=== PATIENT | female | born 1955 | race African-American/Black ===

== ENCOUNTER 2019-09-08 08:00 | Outpatient (RCR) | payer OTHER, SELFPAY ==
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
--- NOTE | 2019-08-13 08:52 | PTOPEVAL ---
PHYSICAL THERAPY PLAN OF CARE UPDATE AND PROGRESS REPORT Thank you for referring this patient to [facility]. So will continue physical therapy 2x/week for 3 weeks. Please review, sign, date and return this plan of care [facility]. I agree with and certify that the following plan of care is medically necessary. Referring Physician Date Re-evaluation Outpatient Past Medical History Past Medical History Past Medical History Status Patient Denies Significant Past Medical History Evaluation Information Problem Diagnosis left ankle pain, right trochanteric bursitis Onset 1 year ago Subjective Information So has participated 8 Query Text:As Reported By Patient/ visits of physical therapy for Family left ankle pain and right hip pain diagnosed as trochanteric bursitis. She reports today that the ankle only hurts momentarily when she steps off (on an uneven rock, etc). Also reports that the right hip pain seems to be less to some degree, but continues to be limiting her sleep and is painful if she sits for too long. Pain Scale Pain Scale Used Numeric (1 - 10) Self Report Pain Assessment Right Hip(s) Reported Pain Level 2 Interventions Used By Clinicians Exercise,Heat,Manual Therapy Techniques Left Ankle(s) Reported Pain Level 2 Pain Description Sharp Pain Frequency Intermittent Other Pain Description medial ankle Interventions Used By Clinicians Exercise Additional Pain Comments reports random pain sharp pain medial ankle Pain Score Pain Score 2,2: Self Report Hip Range of Motion Left Hip Medial Rotation - Passive 45 Hip Lateral Rotation - Passive 60 Right Hip Flexion Range of Motion - Passive 135 Hip Abduction Range of Motion - Active 40 Hip Medial Rotation - Passive 60 Hip Lateral Rotation - Passive 45 Hip Range of Motion Limitations Muscle Length Restriction Ankle/Foot Range of Motion Left Ankle Dorsiflextion With Knee Extension 10 Range of Motion - Active Ankle Plantarflexion Range of Motion - 55 Active Query Text: Hip Strength Left Hip Flexion Strength 5 Normal Hip Extension Strength 4+ Good + Hip Abduction Strength 5 Normal Right Hip Flexion Strength 5 Normal Hip Ext
--- NOTE | 2019-08-20 14:07 | PCPTNOTE ---
Patient called & cancelled scheduled appointment for this date and Friday 08/25 due to being out of town
--- NOTE | 2019-09-08 08:43 | PTOPEVAL ---
PHYSICAL THERAPY DISCHARGE REPORT Thank you for referring this patient to [facility]. So will be discharged from PT at this time. She is to follow-up with physician regarding persistent left foot/ankle symptoms despite normal strength, ROM, and function. Please review, sign, date and return this plan of care TOREY. I agree with and certify that the following plan of care is medically necessary. Referring Physician Date Discharge Outpatient Past Medical History Past Medical History Status Patient Denies Significant Past Medical History Evaluation Information Problem Diagnosis left ankle pain, right trochanteric bursitis Onset 1 year ago Subjective Information So has participated 8 weeks Query Text:As Reported By Patient/ of physical therapy for left Family ankle pain and right hip pain diagnosed as trochanteric bursitis. She reports today that the ankle has not changed in that she continues to experience periodic symptoms without known etiology - she is working on seeing if her shoes make a difference. Reports that her hip is improved and thinks that rolling the glutes and ITB is very helpful. So would like to be able to run in a half marathon, but has not tried to run on the left ankle yet. Self Report Pain Assessment Right Hip(s) Reported Pain Level 1 Interventions Used By Clinicians Exercise,Heat,Manual Therapy Techniques Left Ankle(s) Reported Pain Level 1 Pain Frequency Intermittent Other Pain Description medial ankle Interventions Used By Clinicians Exercise Hip Range of Motion Right Hip Flexion Range of Motion - Passive 135 Hip Abduction Range of Motion - Active 40 Hip Medial Rotation - Passive 50 Hip Lateral Rotation - Passive 50 Hip Range of Motion Limitations Muscle Length Restriction Ankle/Foot Range of Motion Left Ankle Dorsiflextion With Knee Extension 10 Ankle Plantarflexion Range of Motion - 55 Hip Strength Left Hip Flexion Strength 5 Normal Hip Extension Strength 5 Normal Hip Abduction Strength 5 Normal Right Hip Flexion Strength 5 Normal Hip Extension Strength 5 Normal Hip Abduction Strength 5 Normal Knee Strength Bilateral
== END 2019-09-08 09:00 | disposition home or self-care (01) ==
LOC: ANHPT 08:00
DX: M25.572 Pain in left ankle and joints of left foot (principal); M70.61 Trochanteric bursitis, right hip
CPT/HCPCS: 97110; 97140; 97161

== ENCOUNTER 2019-12-28 17:40 | Observation (INO) | payer OTHER, SELFPAY ==
[2019-12-28] VITALS (12 sets, daily range): BP systolic 119–136; BP diastolic 68–85; PULSE 50–68; RESP 11–20; TEMP 36.2; O2SAT 97–100
--- NOTE | ~2019-12-28 | MR_ITS ---
EXAMINATION: MR brain/brain stem wo con DATE: 12/29/2019 13:26 INDICATION: Dizziness. TECHNIQUE: Magnetic resonance imaging (MRI) of the brain and brainstem was performed without intraven ous contrast. Sequences included sagittal and axial T1-weighted FSE, axial diffusion-weighted FS EPI, axial T2*-weighted GRE, axial T2-weighted FLAIR Propeller, and axial T2-weighted Propeller. Apparent diffusion coefficient (ADC) maps were created. COMPARISON: Head CT 12/28/2019 FINDINGS: There are scattered areas of nonspecific increased T2-weighted signal intensity in the cere bral white matter, which is within normal limits for the patient's age. There is no intracranial hemo rrhage, acute infarction, or abnormal intracranial mass lesion. The ventricles are normal in size. Th e paranasal sinuses are clear. The orbits are normal. The mastoid air cells are normal. IMPRESSION: 1. Normal brain. Reviewed, dictated and finalized at location A. IMPRESSION: 1. Normal brain.
--- NOTE | ~2019-12-28 | CT_ITS ---
EXAMINATION: CT brain wo con DATE: 12/28/2019 22:53 INDICATION: Vertigo. TECHNIQUE: Computed tomography (CT) of the head was performed without intravenous contrast. The mA wa s adjusted according to patient size. Iterative reconstruction technique was employed. The dose-lengt h product was 605.33 mGy-cm. COMPARISON: Head CT 07/06/2008 FINDINGS: There are scattered areas of low attenuation in the cerebral white matter, which is within normal limits for the patient's age. There is no intracranial hemorrhage, acute infarction, or abnorm al intracranial mass lesion. The ventricles are normal in size. There is a small osteoma in right eth moid sinus. The mastoid air cells are normal. The orbits are normal. IMPRESSION: 1. Normal aging brain. Reviewed, dictated and finalized at location A. IMPRESSION: 1. Normal aging brain.
--- NOTE | ~2019-12-28 | XR_ITS ---
EXAMINATION: XR chest 1V DATE: 12/28/2019 22:49 INDICATION: Dizziness. Diaphoresis. TECHNIQUE: A single frontal view of the chest was obtained. COMPARISON: Chest 2 views 09/13/2015 FINDINGS: The chest demonstrates clear lungs without pneumonia, pleural effusion, or pneumothorax. Th e heart size is normal. IMPRESSION: 1. No acute cardiopulmonary disease. Reviewed, dictated and finalized at location A.
--- NOTE | 2019-12-28 18:24 | ECG_ITS ---
Measurements Intervals [place] Rate: 51 P: 46 WI: 146 QRS: -15 QRSD: 90 T: 38 QT: 491 QTc: 453 Interpretive Statements SINUS BRADYCARDIA RSR' IN V1 OR V2, CONSIDER RIGHT VENTRICULAR HYPERTROPHY OR RIGHT VCD VOLTAGE CRITERIA FOR LVH MINIMAL Q WAVES- HIGH LATERAL LEADS BORDERLINE ECG Electronically Signed On 12-29-2019 6:56:58 CDT by Romulo Michelle D.O.
[2019-12-28 18:45] LABS: Basophils Percent Auto 0.2 % (0.2-1.2); Eosinophils Absolute Auto 0.1 K/mm3 (0-0.3); Eosinophils Percent Auto 1.4 % (0-4.4); Hematocrit 38.2 % (37.0-47.0); Hemoglobin 12.3 g/dL (12.0-15.0); Immature Granulocyte Absolute 0.07 K/mm3 (0.00-0.031); Immature Granulocyte Percent A 1.2 % (0-0.5); Lymphocytes Absolute Auto 1.51 K/mm3 (0.9-3.2); Lymphocytes Percent Auto 26.9 % (18.3-44.2); Mean Corpuscular HGB Conc 32.2 g/dl (32-36); Mean Corpuscular Hemoglobin 26.7 pg (26-34); Monocytes Absolute Auto 0.3 K/mm3 (0.1-0.6); Monocytes Percent Auto 5.9 % (2.6-8.5); Neutrophils Absolute Auto 3.6 K/mm3 (1.3-6.7); Neutrophils Percent Auto 64.4 % (45.5-73.1); Platelet Count Result 213 k/mm3 (150-375); Red Cell Distribution Width 13.8 % (11.5-14.5); White Blood Count 5.6 K/mm3 (4.5-10.0)
[2019-12-28 18:57] LABS: Alanine Aminotransferase 14 U/L (4-35); Albumin Level 4.2 g/dL (3.5-5.1); Alkaline Phosphatase 72 U/L (38-126); Aspartate Amino Transferase 29 U/L (14-36); Bilirubin,Total 0.4 mg/dL (0.2-1.3); Blood Urea Nitrogen 10 mg/dL (7-17); Calcium 9.6 mg/dL (8.4-10.2); Carbon Dioxide 25 mmol/L (22-30); Chloride 106 mmol/L (98-107); Estimated CRCL calculation 66 ml/min; Estimated Glomerular Filt Rate > 60; Glucose 147 mg/dL (65-105); Potassium 3.5 mmol/L (3.4-5.0); Sodium 139 mmol/L (137-145)
--- NOTE | 2019-12-28 19:53 | ED.DIZZY ---
HPI - Dizziness General Chief Complaint: Dizziness Stated Complaint: dizzy Time Seen by Provider: 12/28/19 19:04 History of Present Illness HPI Narrative: Dizziness since yesterday. Initially mild to moderate. Today became more severe and associated with nausea and difficulty walking. Made slightly better by laying still with her eyes closed. Made worse by any movement. Feels like spinning and light headedness. She has had some sinus pressure. Related Data Home Medications Medication Instructions Recorded Confirmed bimatoprost [Lumigan] 12/28/19 cyclosporine [Restasis] 12/28/19 dorzolamide 12/28/19 fexofenadine-pseudoephedrine tablet PO 12/28/19 [Deepika-D 12 Hour] levothyroxine [Euthyrox] 12/28/19 ospemifene [Osphena] mg 12/28/19 Allergies Allergy/AdvReac Type Severity Reaction Status Date / Time Penicillins Allergy Mild Hives Unverified 12/28/19 17:53 Review of Systems Review of Systems: All systems reviewed & are unremarkable except as noted in HPI and below Constitutional: Constitutional: Denies chills and Denies fever(s) Eyes: Eyes: Denies change in vision ENT: Reports dizziness Cardiovascular: Cardiovascular: Denies chest pain Respiratory: Respiratory: Denies dyspnea Gastrointestinal: Gastrointestinal: Reports nausea and Reports vomiting Genitourinary: Genitourinary: Denies dysuria Neurologic: Denies headache(s), Denies focal weakness and Denies numbness PMFSH Past Medical History Medical History (Updated 12/29/19 @ 03:04 by Lyle Hobbs MD) Hypothyroid Social History Social History (Updated 12/29/19 @ 03:05 by Lyle Hobbs MD) Smoking status: Never smoker Gender identity (if verbalized by the patient): Female Exam Const: General: healthy appearing, no acute distress and alert Nutritional Appearance: well nourished Orientation/consciousness: patient oriented x3 HENMT: Ears: TM abnormal wth effusion serous on the right Mouth: Yes lip normal and Yes moist mucous membranes Eyes: Pupils: Equal, round and reactive pupils present Other: Nystagmus Neck: Neck: no lymphadenopathy Resp: Effort & Inspection: normal respiratory effort Auscultation: clear to auscultation bilaterally Cardio: Rate: regular rate Rhythm: regular rhythm Neuro: General: patient oriented x3, moves all extremities, no focal motor deficits and CN's II-XI intact bilaterally Cranial nerves: Yes Nystagmus present horizontal Speech: normal speech Course Vital Signs Vital signs: Vital Signs Temperature 36.2 C L 12/28/19 17:58 Pulse Rate 54 L 12/28/19 17:58 Respiratory Rate 11 L 12/28/19 17:58 Blood Pressure 135/84 12/28/19 17:58 Pulse Oximetry 98 12/28/19 17:58 Temperature 37.2 C 12/29/19 02:22 Pulse Rate 59 L 12/29/19 02:22 Respiratory Rate 17 12/29/19 02:22 Blood Pressure 115/79 12/29/19 02:22 Pulse Oximetry 100 12/29/19 02:22 MDM - Dizziness MDM Narrative Medical decision making narrative: History and exam findings suggest peripheral source. Minimal improvmeent with treatment. Attempted transition to oral medications for discharge. She vomitined and became unsteady when she attempted to walk. I will admit for observation. Differential Diagnosis Differential diagnosis: Likely benign paroxysmal positional vertigo, vertebral basilar insufficiency, cerebrovascular accident and transient cerebral ischemia Medical Records Attestation: I reviewed the patient's medical records. Lab Data Attestation: I reviewed the patient's lab results. Result diagrams: 12/28/19 18:41 12/28/19 18:41 Labs: Lab Results 12/28/19 12/28/19 Range/Units 18:41 18:41 WBC 5.6 (4.5-10.0) K/mm3 RBC 4.60 (4.2-5.4) M/mm3 Hgb 12.3 (12.0-15.0) g/dL Hct 38.2 (37.0-47.0) % MCV 83.0 (80-100) fl MCH 26.7 (26-34) pg MCHC 32.2 (32-36) g/dl RDW 13.8 (11.5-14.5) % Plt Count 213 (150-375) k/mm3 MPV 10.0 (
[2019-12-28] MEDS: PSEUDOEPHEDRINE HCL 30 MG TABLET 60 MG PO (21:14)
[2019-12-28] MEDS: SODIUM CHLORIDE 0.9% IV 1,000 ML 999 ML IV CONT (21:14)
[2019-12-28] MEDS: MECLIZINE HCL 25 MG TABLET PO (22:23)
--- NOTE | 2019-12-28 22:32 | PC.NURSE ---
attempted to ambulate patient at erps request. patient stood at bedside and began to dramatically sway and wretch. put patient back into bed and lowered head of bed at her request. patient became angry with this rn because the head of bed went down to quickly. patient verbalizing multiple complaints that no one is doing anything' and about her length of stay
[2019-12-29] VITALS (9 sets, daily range): BP systolic 115–140; BP diastolic 70–89; PULSE 49–99; RESP 15–25; TEMP 36.5–37.2; O2SAT 98–100; BMI 27.1
[2019-12-29] MEDS: DIAZEPAM 5 MG TABLET PO (01:11)
--- NOTE | 2019-12-29 01:20 | PC.NURSE ---
PT VOMITED PO VALIUM AT THIS TIME. EDP ORDERED 5 MG OF VALIUM IV.
--- NOTE | 2019-12-29 02:42 | PC.NURSE ---
This patient, So Bailey, was admitted to Medical Room 255-. Patient/family oriented to hospital policies and general routines including ID bracelet, bed and alarms, visiting hours, pain management, procedures, bathroom and other care routines, personal items, smoking policy, room service/diet, and visiting hours. Valuables list has been completed. Information on how to activate the Rapid Response Team has been discussed. Patient/Family are encouraged to report perceived risks to care and to ask questions if they do not understand what they are told or what they should do.
[2019-12-29] MEDS: LACTATED RINGERS 1,000 ML 125 ML IV CONT (03:38)
--- NOTE | 2019-12-29 03:53 | PM.IMHP ---
H&P: HPI History of Present Illness Chief complaint: Vertigo Narrative: This is a 64 year old female with known hypothryoidism who presented to the hospital [facility] with a complaint of severe dizziness, nausea, and vomiting since Saturday. The patient describes that her symptoms are exacerbated with any head movement. She describes a sensation of everything spinning. She has been so dizzy that she can't walk. She denies any ear pain, hearing loss, or ringing. The patient denies any recent URI symptoms including fever, cough, sore throat, shortness of breath, or chest pain. She also denies any focal neurological symptoms such as numbness, tingling, focal weakness, double vision, blurry vision, swallowing difficulties or facial drooping. She has not suddenly stopped taking any of her medications recently. She denies ever having similar symptoms in the past. The patient was evaluated in the ER [facility] and treated with Valium and Meclizine. She could not ambulate and we have been asked to admit her for further treatment. Review of Systems Review of Systems: All systems reviewed & are unremarkable except as noted in HPI and below PMFSH Past Medical History Medical History Glaucoma Hypothyroid Family History Family History Father Hypertension Mother Hypertension Sibling Hypertension Social History Social History Smoking packs per day: 0.5 Smoking cigarettes per day: 10.0 Smoking status: Former smoker Tobacco type: cigarettes Second hand tobacco smoke exposure: No Alcohol intake: never Substance use: never Substance use type: does not use Gender identity (if verbalized by the patient): Female Spiritual care concerns: No Comments Past surgical history is unremarkable. Meds Home Medications and Allergies Home Medications Medication Instructions Recorded Confirmed Type bimatoprost [Lumigan] 1 drp OPHTHALMIC (EYE) BID 12/28/19 12/29/19 History cyclosporine [Restasis] 1 drp OPHTHALMIC (EYE) BID 12/28/19 12/29/19 History dorzolamide 1 drp OPHTHALMIC (EYE) BID 12/28/19 12/29/19 History fexofenadine-pseudoephedrine 60 tablet PO DAILY 12/28/19 12/29/19 History [Deepika-D 12 Hour] levothyroxine [Euthyrox] 75 mcg PO DAILY 12/28/19 12/29/19 History ospemifene [Osphena] 60 mg PO DAILY 12/28/19 12/29/19 History diazepam [Valium] 5 mg PO TID PRN #10 tablet 12/29/19 Rx ondansetron HCl [Zofran] 4 mg PO Q6H PRN #10 tablet 12/29/19 Rx Allergies Allergy/AdvReac Type Severity Reaction Status Date / Time Penicillins Allergy Mild Hives Verified 12/29/19 08:46 Vital Signs Vital Signs - 24 hr 12/28/19 17:58 12/28/19 18:17 12/28/19 18:30 Temperature 36.2 C L Pulse Rate 54 L 55 L 56 L Respiratory Rate 11 L 19 15 Blood Pressure 135/84 Pulse Oximetry 98 98 100 12/28/19 18:31 12/28/19 18:45 12/28/19 19:00 Temperature Pulse Rate 52 L 52 L 52 L Respiratory Rate 12 15 14 Blood Pressure 133/81 Pulse Oximetry 100 97 99 12/28/19 19:01 12/28/19 19:15 12/28/19 19:16 Temperature Pulse Rate 50 L 58 L 54 L Respiratory Rate 14 13 13 Blood Pressure 136/85 127/81 Pulse Oximetry 98 98 100 12/28/19 21:14 12/28/19 22:15 12/28/19 23:34 Temperature Pulse Rate 56 L 68 54 L Respiratory Rate 17 20 19 Blood Pressure 119/79 122/68 127/78 Pulse Oximetry 97 99 100 12/29/19 01:19 12/29/19 02:22 Temperature 37.2 C Pulse Rate 55 L 59 L Respiratory Rate 19 17 Blood Pressure 128/89 115/79 Pulse Oximetry 100 100 Exam Const: General: cooperative, alert, awake and in distress (Dizziness++ ) mild Nutritional Appearance: well nourished Orientation/consciousness: patient oriented x3 HENMT: Head: normal to inspection General nose exam: Normal external nose present Face and sinus: normal facial exam Mouth: Ye
[2019-12-29 04:07] LABS: Add Urine Microscopic? YES; Appearance Urine Clear (Clear); Bilirubin Urine Negative (Negative); Color Urine Yellow (Yellow); Glucose Urine UA Negative (Negative); Ketones Urine 1+ mg/dL (Negative); Leukocyte Esterase Ur 2+ LEU/UL (Negative); Mucus Urine Rare /lpf; Nitrate Urine Negative (Negative); Protein Urine Negative (Negative); RBC Urine 0-2 /hpf (0-2); Specific Grav Ur 1.013 (1.001-1.035); Squamous Epithelial Cell Urine Few /hpf (Few); Urobilinogen Urine Negative mg/dL (<2.0); WBC Urine 31-50 /hpf
[2019-12-29 04:08] LABS: Blood Urine Negative (Negative)
[2019-12-29 05:24] LABS: Eosinophils Percent Auto 0.2 % (0-4.4); Hematocrit 36.6 % (37.0-47.0); Hemoglobin 11.6 g/dL (12.0-15.0); Immature Granulocyte Absolute 0.02 K/mm3 (0.00-0.031); Immature Granulocyte Percent A 0.4 % (0-0.5); Lymphocytes Absolute Auto 1.12 K/mm3 (0.9-3.2); Lymphocytes Percent Auto 21.3 % (18.3-44.2); Mean Corpuscular HGB Conc 31.7 g/dl (32-36); Mean Corpuscular Hemoglobin 26.5 pg (26-34); Mean Corpuscular Volume 83.6 fl (80-100); Monocytes Absolute Auto 0.3 K/mm3 (0.1-0.6); Monocytes Percent Auto 6.3 % (2.6-8.5); Neutrophils Absolute Auto 3.8 K/mm3 (1.3-6.7); Neutrophils Percent Auto 71.8 % (45.5-73.1); Platelet Count Result 210 k/mm3 (150-375); Red Blood Count 4.38 M/mm3 (4.2-5.4); Red Cell Distribution Width 13.5 % (11.5-14.5); White Blood Count 5.3 K/mm3 (4.5-10.0)
[2019-12-29 05:35] LABS: Blood Urea Nitrogen 9 mg/dL (7-17); Calcium 9.2 mg/dL (8.4-10.2); Carbon Dioxide 28 mmol/L (22-30); Chloride 106 mmol/L (98-107); Estimated CRCL calculation 75 ml/min; Estimated Glomerular Filt Rate > 60; Glucose 96 mg/dL (65-105); Potassium 3.8 mmol/L (3.4-5.0); Sodium 139 mmol/L (137-145)
[2019-12-29 05:45] LABS: Erythrocyte Sedimentation Rate 17 mm/hr (0-20)
[2019-12-29] MEDS: LEVOTHYROXINE SODIUM 75 MCG TABLET PO (06:10)
[2019-12-29 06:12] LABS: Free T4 Free Thyroxine 1.32 ng/mL (0.78-2.19)
[2019-12-29] MEDS: DORZOLAMIDE HCL 2% OPHTH DROPS 1 DROP EACH EYE ×2 (08:47→17:18)
[2019-12-29] MEDS: MECLIZINE HCL 12.5 MG TABLET PO (10:13)
--- NOTE | 2019-12-29 11:15 | PM.IMPN ---
Progress Note: A&P Assessment and Plan (1) Vertigo: Code(s): R42 - Dizziness and giddiness Status: Acute Assessment and Plan: Consider that the patient may have vestibular neuritis vs. BPPV. r/o possible posterior CVA. The patient has been admitted for observation. The patient has had some relief since arrival with the use of meclizine and Valium. At this time she is still having dizziness, and is keeping her eyes closed and not moving her head. I have scheduled meclizine 25 mg q.i.d. for her dizziness, p.r.n. Valium for worsening dizziness. The patient's inflammatory marker with ESR was normal. Will continue monitoring her symptoms at this time and see what Neurology thinks upon their examination. (2) Hypothyroid: Code(s): E03.9 - Hypothyroidism, unspecified Status: Chronic Assessment and Plan: Patient's free T4 was normal. Continue levothyroxine PO. (3) Glaucoma: Code(s): H40.9 - Unspecified glaucoma Status: Chronic Assessment and Plan: Continue eye drops. (4) Abnormal urinalysis: Code(s): R82.90 - Unspecified abnormal findings in urine Status: Acute Assessment and Plan: The patient's urinalysis showed 2+ leukocyte esterase and 31-50 wbc's. Urine culture was sent and will be pending is results and no antibiotics will be started at this time. The patient is not having any urinary symptoms at this time. Time Spent With Patient Time with patient: 25 - 35 minutes Subjective Date/time seen: 12/29/19 11:15 Interval history: Date of service 12/29/2019: Patient reports continued dizziness, but it is improved since arrival. She reports needing to have her eyes closed and laying still on the bed helps her symptoms. Her symptoms increase with any type of movement of her head or standing. She denies any nausea or vomiting at this time. She denies any chest pain, shortness of breath, cough, fever, chills, abdominal pain, leg swelling, focal weakness, numbness or tingling, or any other symptoms at this time. Review of Systems Review of Systems: All systems reviewed & are unremarkable except as noted in HPI and below Exam Narrative: Exam Narrative: General: 64-year-old woman laying flat in bed with her eyes closed with her head elevated at 30?. Appears comfortable, with her eyes closed and not much movement of her head. In no acute distress. Eyes: Horizontal nystagmus identified bilaterally. PERRLA. EOMI. Skin: No jaundice or cyanosis. Good skin turgor. Neck: Full range of motion. Supple. Respiratory: Lungs are clear to auscultation bilaterally. No bony chest wall tenderness. Cardiovascular: The heart has a regular rate and rhythm without murmur. Lower extremities: No lower extremity edema. Distal pulses are easily palpated. No calf tenderness to palpation. Gastrointestinal: The abdomen is soft, nontender and nondistended with active bowel sounds. Psychiatric: Lucid and oriented. Memory intact. Neurologic: Strength equal bilaterally. No sensory deficits. No focal deficits. Speech is clear. No facial drooping. Objective Data Vital Signs Vital Signs: Vital Signs - 24 hr 12/28/19 17:58 12/28/19 18:17 12/28/19 18:30 Temperature 97.2 F L Pulse Rate 54 L 55 L 56 L Respiratory Rate 11 L 19 15 Blood Pressure 135/84 Pulse Oximetry 98 98 100 12/28/19 18:31 12/28/19 18:45 12/28/19 19:00 Temperature Pulse Rate 52 L 52 L 52 L Respiratory Rate 12 15 14 Blood Pressure 133/81 Pulse Oximetry 100 97 99 12/28/19 19:01 12/28/19 19:15 12/28/19 19:16 Temperature Pulse Rate 50 L 58 L 54 L Respiratory Rate 14 13 13 Blood Pressure 136/85 127/81 Pulse Oximetry 98 98 100 12/28/19 21:14 12/28/19 22:15 12/28/19 23:34 Temperature Pu
[2019-12-29] MEDS: SODIUM CHLORIDE 0.9% IV 1,000 ML 80 ML IV CONT (11:51)
[2019-12-29] MEDS: LORAZEPAM INJ 2 MG/ML VIAL 0.5 MG IV PUSH (12:55)
[2019-12-29] MEDS: MECLIZINE HCL 25 MG TABLET PO ×3 (13:39→20:32)
--- NOTE | 2019-12-29 13:51 | CONS_ITS ---
DATE OF CONSULTATION: 12/29/2019 HISTORY OF PRESENT ILLNESS: A 64-year-old right-handed female has been admitted to [facility] through the emergency room for the complaints of severe dizziness along with nausea and vomiting since Saturday. The patient's symptomatology is being exacerbated by any head movements. She was unable to walk. She gave no history of pain in her ears. No history of generalized symptomatology such as fever and gave no history of any other neurological symptomatology such as weakness or numbness of one side or other side. In the ER, she was given the meclizine. She was unable to ambulate, was hospitalized for further management. She does have ongoing history of: 1. Glaucoma. 2. Hypothyroidism. 3. Smoking status of former though smoked cigarettes per day, 10 and no history of alcohol drinking. MEDICATIONS: Taking multiple medications at the time of admission mainly included: 1. Eyedrops Lumigan. 2. Restasis. 3. Dorzolamide. 4. Deepika q.12 hours. 5. Levothyroxine 75 mcg daily. 6. Ospemifene 60 mg daily. 7. Diazepam 5 mg t.i.d. p.r.n. 8. Zofran 4 mg q.6 hours p.r.n. ALLERGIES: SHE IS REPORTEDLY ALLERGIC TO PENICILLIN. PHYSICAL EXAMINATION: VITAL SIGNS: Evaluation revealed her to be afebrile with pulse of 54, respiration 11, blood pressure 135/84, pulse ox 98%. GENERAL: Physical examination revealed her to be awake, alert, cooperative, in no obvious acute distress. HEENT: Head normocephalic with no cranial bruit. Ear, nose, throat examination normal. NECK: Supple with no cervical bruit. No thyromegaly. No lymphadenopathy. HEART: Regular with no murmur. LUNGS: Clear to auscultation. ABDOMEN: Soft with no organomegaly. NEUROLOGICAL: She is awake, alert, oriented x3. Speech not dysphasic, not dysarthric, not dysphonic. Pupils round, regular. Phelps of vision full. Extraocular movements full. Face symmetrical. Tongue midline. Motor examination revealed no drift of one side or other side. The only pertinent finding was any movements of the head made her dizzy with jerking of the nystagmus in the eyes. LABORATORY DATA: Evaluation up until now documented CBC without leukocytosis, hemoglobin 12.3, platelet count 213. Normal basic metabolic panel. Normal hepatic enzymes. Albumin 4.2. She has had a CT scan of the head in the emergency room, which was negative. Most likely diagnosis is labyrinthine dysfunction with the possibly of the vestibular neuritis versus the benign paroxysmal vertigo, possibly the posterior circulation needs to be ruled out. The patient had the negative CT scan, but we will also need the pending stable CTA to evaluate the posterior circulation status. FRANCE GAMBLE M.D. ELECTRONICS PROCESSING SUPERVISOR ELECTRONICS PROCESSING SUPERVISOR D I MT: Skye
[2019-12-29] MEDS: LATANOPROST 0.005% OP SOLN 2.5 ML BTL 1 DROP EACH EYE (20:33)
[2019-12-30] MEDS: SODIUM CHLORIDE 0.9% IV 1,000 ML 80 ML IV CONT (01:30)
[2019-12-30 06:00] VITALS: BP 114/73; PULSE 70; RESP 20; TEMP 36.7; O2SAT 98
[2019-12-30] MEDS: LEVOTHYROXINE SODIUM 75 MCG TABLET PO (06:11)
[2019-12-30] MEDS: MECLIZINE HCL 25 MG TABLET PO (08:20)
[2019-12-30] MEDS: DORZOLAMIDE HCL 2% OPHTH DROPS 1 DROP EACH EYE (08:20)
--- NOTE | 2019-12-30 09:56 | WPDNEUROPN ---
Progress Note: A&P Assessment and Plan (1) Abnormal urinalysis: Code(s): R82.90 - Unspecified abnormal findings in urine Status: Acute (2) Glaucoma: Code(s): H40.9 - Unspecified glaucoma Status: Chronic (3) Hypothyroid: Code(s): E03.9 - Hypothyroidism, unspecified Status: Chronic (4) Vertigo: Code(s): R42 - Dizziness and giddiness Status: Acute (5) Peripheral vestibulopathy of right ear: Code(s): H81.91 - Unspecified disorder of vestibular function, right ear Status: Acute Additional Plan improving Review of Systems Review of Systems: All systems reviewed & are unremarkable except as noted in HPI and below Exam Const: General: cooperative, comfortable, no acute distress, alert, awake and Physically active Nutritional Appearance: average body habitus Orientation/consciousness: patient oriented x3 Limitations: no limitations HENMT: Head: normal to inspection Eyes: General: appearance normal, both eyes and all related structures Neck: Neck: full ROM Resp: Effort & Inspection: normal respiratory effort and able to speak in complete sentences Auscultation: clear to auscultation bilaterally Cardio: Rate: regular rate Rhythm: regular rhythm GI: Auscultation: normal bowel sounds Skin: General skin exam: no rashes or lesions noted Neuro: General: patient oriented x3 Cranial nerves: Yes CN's II-XII intact bilaterally and Yes Nystagmus not present Speech: normal speech Motor exam (neuro): 5/5 motor strength present throughout Sensory Exam: normal sensation Deep tendon reflexes (DTR's): Right triceps reflex intensity grade: 1+, Left triceps reflex intensity grade: 1+, Rt Biceps (C5, C6): 1+, Left biceps reflex intensity grade: 1+, Right brachioradialis reflex intensity grade: 1+, Left brachioradialis reflex intensity grade: 1+, Right patellar reflex intensity grade: 1+, Left patellar reflex intensity grade: 1+, Right ankle reflex intensity grade: 1+ and Left ankle reflex intensity grade: 1+ Plantar Reflex Responses: downgoing: bilateral Coordination: [id number] test normal Psych: Appearance: grossly normal Objective Data Vital Signs Vital Signs: Vital Signs - 24 hr 12/29/19 10:28 12/29/19 10:29 12/29/19 10:31 Temperature Pulse Rate 53 L 72 99 Respiratory Rate 19 21 H 25 H Blood Pressure 140/80 130/88 130/78 Pulse Oximetry 12/29/19 14:00 12/29/19 20:00 12/29/19 22:00 Temperature 36.8 C 36.5 C Pulse Rate 55 L 55 L 86 Respiratory Rate 15 15 18 Blood Pressure 115/70 116/70 Pulse Oximetry 100 100 98 12/30/19 06:00 Temperature 36.7 C Pulse Rate 70 Respiratory Rate 20 Blood Pressure 114/73 Pulse Oximetry 98 Intake/Output Intake/Output: Intake & Output 12/27/19 12/28/19 12/29/19 12/30/19 23:59 23:59 23:59 23:59 Intake Total 3608 532 5083 Output Total 1850 800 Balance 1000 -1330 680 Meds/Results Medications: Active Medications Generic Name Dose Route Start Last Admin Trade Name Freq PRN Reason Stop Dose Admin Cyclosporine 1 drop 12/29/19 09:00 12/30/19 08:21 Restasis EACH EYE 1 drop BID ANA Administration Diazepam 2.5 mg 12/29/19 01:12 12/29/19 11:51 Valium Inj IV PUSH 2.5 mg Q2HR PRN Administration vertigo Dorzolamide HCl 1 drop 12/29/19 09:00 12/30/19 08:20 Trusopt EACH EYE 1 drop BID ANA Administration Sodium Chloride 1,000 mls @ 80 mls/hr 12/29/19 11:15 12/30/19 08:21 Normal Saline Iv IV CONT 0 mls/hr .[id number] ANA Infusion Latanoprost 1 drop 12/29/19 21:00 12/29/19 20:33 Xalatan EACH EYE 1 drop HS ANA Administration Levothyroxine Sodium 75 mcg 12/29/19 06:30 12/30/19 06:11 Synthroid PO 75 mcg DAILY@0630 ANA Administration Loratadine/Pseudoephedrine Sulfate 1 tab 12/29/19 09:00 12/30/19 08:20 Claritin-D 24 Hour Tablet PO 1 tab QAM ANA Administration Meclizine HCl 25 mg 12/29/19 13:00 12/30/19 08:20 Ant
--- NOTE | 2019-12-30 10:01 | PM.DS ---
DS: Admitting Diagnosis Admitting Diagnosis Admitting Diagnosis: Dizziness and giddiness DS: Discharge Diagnosis Discharge Diagnosis (1) Vertigo: Code(s): R42 - Dizziness and giddiness Status: Acute Assessment and Plan: Consider that the patient may have vestibular neuritis vs. BPPV. r/o possible posterior CVA. Patient's MRI showed normal brain. The patient is feeling much better this morning after use of meclizine q.i.d.. She has been able to eat and drink without any issues with her nausea and vomiting. She was able to walk from her bed to the chair and only felt slightly off balance which is an improvement. Patient lives with her who will be around to take care of her and help her if she needs it around the house until her symptoms completely resolve hopefully in 1-2 weeks. I will also to discharge her to follow-up with the vestibular physical therapist for further evaluation if symptoms continue Will have her follow-up with her primary care provider within 1 week for further evaluation. Will discharge her on meclizine 25 mg q.i.d. p.r.n. for her dizziness and some Zofran for nausea p.r.n.. Neurology evaluated the patient and feels comfortable with discharging her on this regimen (2) Hypothyroid: Code(s): E03.9 - Hypothyroidism, unspecified Status: Chronic Assessment and Plan: Patient's free T4 was normal. Continue levothyroxine PO. (3) Glaucoma: Code(s): H40.9 - Unspecified glaucoma Status: Chronic Assessment and Plan: Continue eye drops. (4) Abnormal urinalysis: Code(s): R82.90 - Unspecified abnormal findings in urine Status: Acute Assessment and Plan: The patient's urinalysis showed 2+ leukocyte esterase and 31-50 wbc's. The patient is not having any urinary symptoms at this time. Patient's urine culture came back positive for group B strep of 50, 000 to 10, 0000. The urine was collected as a clean-catch and had few squamous cells. This is most likely a contamination especially since she was not having any urinary symptoms. Will have her follow-up with her primary care provider for further evaluation if necessary. DS: Summary Hospital Course Reason for hospitalization: The patient is a 64-year-old woman with a history of hypothyroidism, who presented to the emergency department with dizziness with associated nausea and vomiting since Saturday. Initial vitals showed temperature of 97.2?, blood pressure 135/84, heart rate 54, respiratory rate 11, oxygen saturation 98% on room air. Labs showed normal CBC with differential, normal CMP other than glucose at 147. Urinalysis showed 2+ leukocyte esterase, and 31-50 WBCs. Chest x-ray showed no acute cardiopulmonary disease. CT head shows normal aging brain. Patient was admitted into the hospital and started on IV fluids, meclizine, and p.r.n. antiemetics. She was still having symptoms the day after admission and was unable to move her head secondary to dizziness. Neurology was consulted and recommended performing an MRI on the patient to rule out any brainstem lesion or stroke causing the problem. MRI brain showed normal brain. She was kept again overnight and was feeling much better on the day of discharge. She was able to walk over to the chair with only slight dizziness and able to tolerate a diet without any issues. She was discharged home to continue meclizine and Zofran as needed. Follow-up with PCP and vestibular PT upon discharge. Status at Discharge Cognitive/behavioral status at discharge: Stable, improved. Time Spent with Patient Time attestation: Total time spent providing and/or coordinating discharge services: Time spent: Greater than 30 minutes
== END 2019-12-30 11:25 | disposition home or self-care (01) ==
LOC: ANHED 12-29 00:33 → ANH2MED 12-29 02:01
PROVIDERS: Physician Assistant; Admitting Provider Family Medicine; Emergency Provider Family Medicine; Visit Provider Family Medicine
DX: R42 Dizziness and giddiness (principal); R82.90 Unspecified abnormal findings in urine; E03.9 Hypothyroidism, unspecified; H40.9 Unspecified glaucoma; Z87.891 Personal history of nicotine dependence
CPT/HCPCS: 36415; 70450; 70551; 71045; 80048; 80053; 81001; 84439; 85025; 85652; 87077; 87086; 87088; 93005; 96360; 96361; 96374; 96375; 96376; 99285; A9270; G0378; J2060; J3360; J7030; J7120

== ENCOUNTER 2020-02-26 08:00 | Outpatient (RCR) | payer OTHER, SELFPAY ==
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
--- NOTE | 2020-01-01 08:52 | PCPTNOTE ---
pt called and canceled today's appt, left message that she had been in the hospital;
--- NOTE | 2020-01-05 08:56 | PCPTNOTE ---
Patient called & cancelled scheduled appointment this date due to illness.
--- NOTE | 2020-01-07 08:41 | PTOPEVAL ---
PHYSICAL THERAPY RE-EVALUATION AND UPDATED PLAN OF CARE 01-07-2020 Mrs. Bailey has received 4 PT sessions, from December 15 to today. She called/canceled 3 appointments due to hospitalization due to dizziness. With the reevaluation: her pain has decreased in rating for R hip and L ankle, but she states--not been doing anything due to dizziness, been sitting and lying flat in bed; her strength with standing single leg PF has increased; improved that she does not report pain with R hip pirformis stretch and L ankle inversion. Progress has been limited due to limited sessions. Continue PT 2x/week for 4 weeks. Thank you for referring So Bailey to [facility]. Please review, sign, date and return this plan of care TOREY. I agree with and certify that the following plan of care is medically necessary. Referring Physician Date Attending Provider: Dr. Karan Mcdermott Document 01/07/20 08:00 NAHID (Rec: 01/07/20 08:41 NAHID [id number]) Subjective Information So reports: has had Query Text:As Reported By Patient/ dizziness and not been doing Family anything, to hospital for 3 days, December 27; feels like she needs more PT; Pain Assessment Timing of Pain Assessment Timing of Pain Assessment Assessment Pain Scale Pain Scale Used Numeric (1 - 10) Self Report Pain Assessment Left Ankle(s) Reported Pain Level 4 Pain Frequency Acute Lowest Pain Intensity 0 Greatest Pain Intensity 4 Other Alleviating Interventions leukotape applied to L ankle- educated pt on how to apply; fluidotherapy 15mi Additional Pain Comments leukotape helped- bought some and did at home-not feel same as done here Right Hip(s) Reported Pain Level 0 Pain Frequency Acute Lowest Pain Intensity 0 Greatest Pain Intensity 2 Other Pain Aggravating Factors sitting tolerance reported 4-5 hours due to dizziness Additional Pain Comments have not been doing much since hospitalization 5-25 due to dizziness Pain Score Pain Score 4,0: Self Report Lower Extremity Range of Motion General Lower Extremity Range of Motion Gross Lower Extremity Range of Motion supine hamstring length with Comments SLR R 65'/L 70'; supine R hip IR increase pain R buttock; piriformis stretch tight,no pain; L ankle inversion no pain/ eversion increase pain-medial ankle; side lying hip abduction to 0'
--- NOTE | 2020-01-14 15:56 | PCPTNOTE ---
pt called and canceled today's treatment due to continued vertigo;
--- NOTE | 2020-01-22 16:25 | PTOPEVAL ---
Addendum entered by Hina Viveros, PT 01/25/20 09:17: With the vestibular eval, the goals were added to her current Plan of Care for her L ankle and R hip pain. The date of her PT treatment has been extended to February 25. Due to her vestibular issues, she has called and canceled 4 appointments for her treatment of ankle and hip pain. Original Note: PHYSICAL THERAPY EVALUATION AND PLAN OF CARE 01-22-2020 The PT evaluation was completed for vertigo. Her plan of care is 1-2x/wk for 5 weeks. Thank you for referring So Bailey to [facility]. Please review, sign, date and return this plan of care TOREY. I agree with and certify that the following plan of care is medically necessary. Referring Physician Date Attending Provider: Dr. Karan Mcdermott *PT Outpatient Evaluation- vestibular Start: 12/16/19 08:10 Document 01/22/20 14:55 NAHID (Rec: 01/22/20 16:25 NAHID [email or web address]) Outpatient Past Medical History Past Medical History Source of Past Medical History Patient Neurological History Hx Neurological Disorders No Significant History Cardiovascular History Hx Cardiac Disorders No Significant History Respiratory History Hx Respiratory Disorders No Significant History Gastrointestinal History Hx Gastrointestinal Disorders No Significant History Genitourinary History Hx Genitourinary Disorders No Significant History Musculoskeletal History Hx Musculoskeletal Disorders No Significant History Hematological History Hx Hematological Disorders No Significant History Endocrine History Hx Hypothyroidism Yes: meds HEENT History Hx Glaucoma Yes: pre-glaucoma have eye drops Hx Other HEENT Disorders Yes: wear glasses Integumentary History Hx Skin Disorders No Significant History Reproductive History Hx Post Menopausal Yes Psychosocial History Hx Psychiatric Disorders No Significant History Pain History History of Any Previous or Ongoing No Significant History Instance of Pain Anesthesia History Hx Anesthesia Reactions No Significant History Evaluation Information Problem Diagnosis vertigo Onset December 28, 2019 Subjective Information hospitalized due to vertigo Query Text:As Reported By Patient/ Family Pain Assessment Timing of Pain Assessment Timing of Pain Assessment Assessment Pain Scale Pain Scale Used Numeric (1 - 10) Self Report Pain Assessment Bilateral Neck Reported Pain Level 4 Pain Frequency Acute Other Pain Description neck pain and headaches- frontal/ forehead Other Pain Aggravating Factors computer use, light- bright sun Posture Posture Standing Position Additional Posture Comments slighitly forward head and
--- NOTE | 2020-02-26 08:47 | PTOPEVAL ---
PHYSICAL THERAPY DISCHARGE 02-26-2020 Mrs. Bailey has received a total of 13 PT sessions for the diagnosis' of R hip pain, L ankle pain and vertigo. She has improved with: strength and flexibility of her R hip; strength of L ankle: dizziness self assessment score; dizziness only occurs with quick motions of her head; activity tolerance reported with walking, reading, computer use; Compared to the last reeval: her pain ratings of the R hip and L ankle have increased, but she is doing more; at the last reeval date- she was not very active due to dizziness, so her ratings were less. She continues to have L ankle pain, that has centralized and tender point of pain, just below medial malleoli, anterior and inferior to it. Discussed with her further medical assessment of the ankle. Thank you for referring So Bailey to [facility]. Please review, sign, date and return this discharge TOREY. I agree with and certify that the following plan of care is medically necessary. Referring Physician Date Attending Provider: Dr. Karan Mcdermott *PT Outpatient Discharge Document 02/26/20 08:00 NAHID (Rec: 02/26/20 08:46 NAHID [id number]) Subjective Information So reports: no dizziness or Query Text:As Reported By Patient/ headaches past past week, is Family moving slower to avoid onset and is taking daily sinus meds ; tolerance with reading 2 hours, computer about 2 hours; can pick things up off floor, roll R/L, rotate head R/L-OK is do slowly; walking tolerance can easily do one hour; pain in hip and ankle when busy doing something- am not aware of it but when start to move it is there; she is independent with her home exercises--stretching neck, and R hip and strengthening hip and ankle. She has a BOSU for balance/strengthening; theracane for trigger point massage and knows how to apply leukotape to ankle. So has a good awareness of posture, frequent stretch breaks from computer use and changing positions. Discussed referral to ortho/ foot dr for further assessment /treatment of ankle. Pain Assessment Timing of Pain Assessment Timing of Pain Assessment Assessment Pain Scale Pain Scale Used Numeric (1 - 10) Self Report Pain Assessment Bilateral Nec
== END 2020-02-26 12:57 | disposition home or self-care (01) ==
LOC: ANHPT 08:00
DX: M25.551 Pain in right hip (principal); M25.572 Pain in left ankle and joints of left foot
CPT/HCPCS: 97014; 97022; 97110; 97140; 97161; 97162; G0283

== ENCOUNTER 2020-09-29 06:48 | Outpatient (CLI) | payer OTHER, SELFPAY ==
--- NOTE | ~2020-09-29 | CT_ITS ---
EXAMINATION: CT abdomen pelvis wo con EXAM DATE: 09/29/2020 07:28 INDICATION: Uterine leiomyoma. TECHNIQUE: Spiral CT of the abdomen and pelvis was performed without contrast. Axial, coronal and s agittal images were reviewed. The dose-length product (DLP) for this examination was 653.89 mGy-cm. The exposure was tailored according to patient size (auto mA exposure control), and iterative recons truction (ASIR) was used as additional dose reduction technique. There is no prior study for compari son. FINDINGS: The liver, spleen, adrenal glands and pancreas are unremarkable. Gallbladder is unremarkab le. No biliary obstruction. There is no nephrolithiasis or hydronephrosis. Multiple exophytic fib roids with regions of calcification. The bladder is unremarkable. There is no retroperitoneal or pe lvic lymphadenopathy. The appendix is normal. The stomach and small bowel are unremarkable. There is expected amount of c olonic stool. No free intraperitoneal gas. The heart is normal in size. There are no pericardial or pleural effusions. The lung bases are unremarkable. There are no osteoblastic or osteolytic les ions identified. IMPRESSION: Multiple exophytic fibroids. Reviewed, dictated and finalized at location B. STIAN SCIENCE NURSE
== END 2020-09-29 06:49 | disposition home or self-care (01) ==
PROVIDERS: PCP Family Medicine; Visit Provider Family Medicine
DX: D25.9 Leiomyoma of uterus, unspecified (principal)
CPT/HCPCS: 74176

== ENCOUNTER 2020-10-07 15:07 | Outpatient (CLI) | payer OTHER, SELFPAY ==
--- NOTE | ~2020-10-07 | US_ITS ---
EXAMINATION: US pelvic complete w TV DATE: 10/07/2020 16:00 INDICATION: Postmenopausal bleeding TECHNIQUE: Multiple transabdominal and endovaginal sonographic images of the pelvis were obtained. COMPARISON: CT, 09/29/2020 FINDINGS: The uterus measures 8.1 x 6.4 x 8.1 cm. There are at least three calcified fibroids of the uterus which measure 3.7 cm in the right fundus, 3.0 cm in the left fundus, and 2.3 cm in the mid nightmute rine body on the left.. The endometrial complex measures 6 mm. The right ovary measures 2.0 x 2.3 x 1 .5 cm. The left ovary measures 1.6 x 1.2 x 1.0 cm. There is normal vascular flow in the ovaries. Ther e is no free fluid in the pelvis. IMPRESSION: 1. No sonographic correlate for the patient's symptoms. 2. Uterine fibroids. Reviewed, dictated and finalized at location A. PRESIDENT LENDING
== END 2020-10-07 15:08 | disposition home or self-care (01) ==
PROVIDERS: PCP Family Medicine; Visit Provider Obstetrics & Gynecology
DX: N95.0 Postmenopausal bleeding (principal); D25.9 Leiomyoma of uterus, unspecified
CPT/HCPCS: 76830; 76856

== ENCOUNTER → 2020-12-23 07:58 | Outpatient (CLI) | payer OTHER, SELFPAY ==
[2020-12-23 19:22] LABS: SARS-CoV-2 RNA PCR Negative
== END ==
PROVIDERS: PCP Family Medicine; Visit Provider Obstetrics & Gynecology
DX: Z01.812 Encounter for preprocedural laboratory examination (principal); Z20.822 Contact with and (suspected) exposure to COVID-19
CPT/HCPCS: C9803; U0003; U0005

== ENCOUNTER 2020-12-26 00:46 | Day surgery (SDC) | payer OTHER, SELFPAY ==
[2020-12-19 10:33] VITALS: BMI 28.0
--- NOTE | 2020-12-26 08:30 | P.HP_ITS ---
H&P: HPI History of Present Illness Date/Time: 12/26/20 08:30 65 y/o with h/o postmenopausal bleeding 1-2 days ev radha month or two for last couple years. No pelvic pain. EMBX showed endometrial polyp Chief Complaint: postmenopausal bleeding, endometrial polyp Review of Systems Review of Systems: All systems reviewed & are unremarkable except as noted in HPI and below PMFSH Past Medical History Medical History (Updated 12/19/20 @ 08:49 by Loly Li MD) Glaucoma Hypothyroid Family History Family History Father Hypertension Mother Hypertension Sibling Hypertension Social History Social History Smoking packs per day: 0.5 Smoking cigarettes per day: 10.0 Years smoked: 5 Smoking pack-years: 2.50 Smoking status: Former smoker Tobacco type: cigarettes Second hand tobacco smoke exposure: No Smoking end date: 08/05/89 Alcohol intake: never Substance use: never Substance use type: does not use Living arrangements: with family Gender identity (if verbalized by the patient): Female Spiritual care concerns: No Meds Home Medications and Allergies Home Medications Medication Instructions Recorded Confirmed Type fexofenadine-pseudoephedrine 60 tablet PO DAILY 12/28/19 12/19/20 History [Deepika-D 12 Hour] levothyroxine [Euthyrox] 75 mcg PO DAILY 12/28/19 12/19/20 History calcium carbonate 500 mg calcium 500 mg PO DAILY 10/07/20 12/19/20 History (1,250 mg) chewable tablet cholecalciferol (vitamin D3) 125 125 mcg PO DAILY 10/07/20 12/19/20 History mcg (5,000 unit) capsule bimatoprost [Lumigan] 1 drp EACH EYE QPM 12/19/20 12/19/20 History cyclosporine [Restasis] 1 drp EACH EYE Q12H 12/19/20 12/19/20 History dorzolamide 1 drp EACH EYE BID 12/19/20 12/19/20 History Allergies Allergy/AdvReac Type Severity Reaction Status Date / Time Penicillins Allergy Mild Hives Verified 12/19/20 10:11 Exam Const: General: healthy appearing, no acute distress, well developed, alert and awake Resp: Auscultation: clear to auscultation bilaterally Cardio: Rate: regular rate Rhythm: regular rhythm GI: Inspection: non-distended GI Palp: Yes Soft to palpation, No Tenderness to palpation present (GI) and No Palpable mass present : Bimanual exam- vagina & uterus: normal bimanual exam, uterine size normal, uterine mobility normal and non-tender Bimanual Exam- Adnexa, other: normal adnexae, no masses and No adnexal tenderness Extrem: General: no pedal edema and no calf tenderness Psych: Mental Status: mental status grossly normal Assessment and Plan Assessment and plan (1) Postmenopausal bleeding: Code(s): N95.0 - Postmenopausal bleeding Status: Acute Assessment and Plan: She signed consent after risks, benefits, complications, and alternatives discussed for D&C, hysteroscopy, and endometrial polypectomy. She agrees and wishes to proceed (2) Endometrial polyp: Code(s): N84.0 - Polyp of corpus uteri Status: Acute
[2020-12-26 10:42] VITALS: BP 118/79; PULSE 52; RESP 18; TEMP 36.3; O2SAT 100
[2020-12-26] MEDS: LACTATED RINGERS 1,000 ML 30 ML IV CONT (10:55)
[2020-12-26] MEDS: ACETAMINOPHEN 500 MG TABLET 1000 MG PO (10:57)
--- NOTE | 2020-12-26 11:06 | WPDANESEPPF ---
Anes - Initial Pre Proc Eval Procedure: Operation Date: 12/26/20 12:00 Proposed Procedures p Hysteroscopy Dilation and Curettage With Polypectomy - Loly Li MD Date/Time: 12/26/20 11:06 Surgeon: Loly Li MD Pre Op Diagnosis: endometrial polyp Patient Data Age: 65 Gender: F Height: 1.75 m Weight: 86.9 kg Last Vital Signs Temp 36.3 C L 12/26/20 10:42 Pulse 52 L 12/26/20 10:42 Resp 18 12/26/20 10:42 BP 118/79 12/26/20 10:42 Pulse Ox 100 12/26/20 10:42 Allergies Allergy/AdvReac Type Severity Reaction Status Date / Time Penicillins Allergy Mild Hives Verified 12/26/20 10:49 Home Medications Medication Instructions Recorded Confirmed Type fexofenadine-pseudoephedrine 60 tablet PO DAILY 12/28/19 12/26/20 History [Deepika-D 12 Hour] levothyroxine [Euthyrox] 75 mcg PO DAILY 12/28/19 12/26/20 History calcium carbonate 500 mg calcium 500 mg PO DAILY 10/07/20 12/26/20 History (1,250 mg) chewable tablet cholecalciferol (vitamin D3) 125 125 mcg PO DAILY 10/07/20 12/26/20 History mcg (5,000 unit) capsule bimatoprost [Lumigan] 1 drp EACH EYE QPM 12/19/20 12/26/20 History cyclosporine [Restasis] 1 drp EACH EYE Q12H 12/19/20 12/26/20 History dorzolamide 1 drp EACH EYE BID 12/19/20 12/26/20 History Patient hx anesthesia problems: none Family hx anesthesia problems: none PMFSH Past Medical History Medical History (Updated 12/19/20 @ 08:49 by Loly Li MD) Glaucoma Hypothyroid Family History Family History Father Hypertension Mother Hypertension Sibling Hypertension Social History Social History Smoking packs per day: 0.5 Smoking cigarettes per day: 10.0 Years smoked: 5 Smoking pack-years: 2.50 Smoking status: Former smoker Tobacco type: cigarettes Second hand tobacco smoke exposure: No Smoking end date: 08/05/89 Alcohol intake: never Substance use: never Substance use type: does not use Living arrangements: with family Gender identity (if verbalized by the patient): Female Spiritual care concerns: No Anes - Eval Final PreProcedure Day of Procedure 12/26/20 11:06 Patient weight: overweight Heart: regular rate and rhythm Lungs: clear to auscultation and normal air movement Airway: Mallampati scale class II Neurological: alert and oriented Last oral intake: >/= 8 hours ASA classification: III Emergent: no Anesthetic plan: proceed Anesthesia type and monitoring: general GIVS and standard monitoring Informed Consent: The patient's anesthetic plan and its attendant risks and benefits were discussed with the patient/family/POA. Questions were solicited and answers provided to the satisfaction of the patient/family/POA.
--- NOTE | 2020-12-26 11:44 | WPDHPUPDATE1 ---
History and Physical Update Update Date/Time: 12/26/20 11:44 History and Physical has been reviewed, including an updated exam of the patient. There are NO changes in the patient's condition. Risks, benefits, and alternatives have been discussed and questions answered. Patient agrees to proceed with procedure.
--- NOTE | 2020-12-26 11:53 | PM.PROC ---
Procedure Note - Detailed Date of procedure: 12/26/20 Pre-op diagnosis: endometrial polyp Post-op diagnosis: same Procedure performed: D&C, hysteroscopy, endometrial polypectomies using MyoSure Description of procedure: She was taken to the operating room where she was sedated and placed in the dorsal lithotomy position. A speculum was placed in the vagina. The cervix was grasped with a single-tooth tenaculum. The uterus sounded to 7 cm. The cervix was dilated to allow passage of the hysteroscope, which revealed 2 small polypoid lesions inside the endometrial canal. Decision was made to proceed with MyoSure, so the MyoSure scope and device was made ready. The MyoSure was then used under direct visualization to remove the 2 polyps. A sharp curettage was then performed. A final look was taken with the hysteroscope, which showed a clear endometrial cavity. The hysteroscope was removed. The tenaculum was removed from the cervix. The left tenaculum site was bleeding slightly. Pressure was held with an Allis clamp until excellent hemostasis was visualized. All instruments removed from the vagina. She tolerated procedure well. Sponge, lap, and instrument counts were correct x2. She was taken to the recovery room in stable condition. Anesthesia: MAC Surgeon: Loly Li MD Estimated blood loss (mL): 10 Drains: No Packing: No Pathology: yes Complications: No immediate complications Condition: stable Disposition: PACU Findings: Two small endometrial polyps, otherwise normal endometrial cavity
[2020-12-26 12:36] VITALS: BP 112/76; PULSE 65; RESP 16; O2SAT 96
[2020-12-26 13:00] VITALS: BP 111/73; PULSE 54; RESP 20
[2020-12-26 13:30] VITALS: BP 114/80; PULSE 48; RESP 20
[2020-12-26] MEDS: oxyCODONE HCL (*CRX) 5 MG TAB IR PO (13:31)
[2020-12-26 14:00] VITALS: BP 146/80; PULSE 48; RESP 20
== END 2020-12-26 14:15 | disposition home or self-care (01) ==
PROVIDERS: PCP Family Medicine; Visit Provider Obstetrics & Gynecology
PROC: 0U5B8ZZ Destruction of Endometrium, Via Natural or Artificial Opening Endoscopic (ICD-10-PCS; CPT 58563; principal; 2020-12-26 12:00)
DX: N84.0 Polyp of corpus uteri (principal); N95.0 Postmenopausal bleeding; E03.9 Hypothyroidism, unspecified; H40.9 Unspecified glaucoma; Z87.891 Personal history of nicotine dependence
CPT/HCPCS: 58558; 88305; A9270; C9803; J2250; J2704; J3010; J7030; J7120; U0003; U0005

== ENCOUNTER 2021-01-20 16:51 | Outpatient (CLI) | payer OTHER, SELFPAY ==
--- NOTE | ~2021-01-20 | MR_ITS ---
EXAMINATION: MR ankle LT wo/w con DATE: 01/20/2021 18:17 INDICATION: Left ankle pain TECHNIQUE: Magnetic resonance imaging (MRI) of the left ankle was performed without and with 17 mL Mu ltihance intravenous contrast. Sequences included axial, sagittal and coronal T1-weighted FSE and T1- weighted FS FSE, axial T2-weighted FS FSE and postcontrast axial and coronal T1-weighted FS FSE . COMPARISON: None. FINDINGS: Medial ankle ligaments: Deep and superficial deltoid ligaments as well as the spring ligament are normal. Lateral ankle ligaments: The anterior and posterior inferior tibiofibular ligaments are normal. The anterior talofibular, calc aneofibular and posterior talofibular ligaments are normal. Tendons: Mild Achilles tendinosis without tear or peritendinitis. The peroneus longus tendon is normal. There is mild tendinopathy and longitudinal split tearing of the peroneus brevis tendon at the level of the retromalleolar groove. The tibialis anterior and extensor hallucis longus and extensor digitorum roula jacki tendons are normal. The tibialis posterior, flexor digitorum longus and flexor hallucis longus te ndons are normal. Plantar fascia: Plantar aponeurosis is normal. Bones/other: Bone alignment is normal. Osteoarthritis with moderate anterior and medial side predominant nonunifor m joint space narrowing at the ankle joint. Marrow edema and enhancement surrounding subarticular cys tic changes consistent with overlying high-grade chondromalacia at the medial side of the talar dome and along the articular surface of the medial malleolus. Marrow signal is otherwise normal. No fractu re or pathologic marrow replacing process. Additional mild osteoarthritis at the calcaneocuboid and s ubtalar joints. Fluid: Physiologic amount fluid in the joint spaces. IMPRESSION: 1. 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 2. Mild tendinopathy and longitudinal split tearing of the peroneus brevis tendon. 3. Mild Achilles tendinosis without tear. Reviewed, dictated and finalized at location A. IMPRESSION: 1. 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 2. Mild tendinopathy and longitudinal split tearing of the peroneus brevis tend on. 3. Mild Achilles tendinosis without tear.
[2021-01-20 17:27] LABS: Estimated Glomerular Filt Rate > 60
== END 2021-01-20 16:52 | disposition home or self-care (01) ==
PROVIDERS: PCP Family Medicine; Visit Provider Family Medicine
DX: M19.072 Primary osteoarthritis, left ankle and foot (principal)
CPT/HCPCS: 73723; A9577

== ENCOUNTER 2021-03-29 08:54 | Outpatient (CLI) | payer OTHER, SELFPAY ==
--- NOTE | ~2021-03-29 | US_ITS ---
EXAMINATION: US pelvic complete w TV DATE: 03/29/2021 10:03 INDICATION: Postmenopausal bleeding. TECHNIQUE: Multiple transabdominal and transvaginal sonographic images of the pelvis were obtained. COMPARISON: Ultrasound 10/07/2020, CT abdomen and pelvis 09/29/2020 FINDINGS: TRANSABDOMINAL ULTRASOUND: There is no free fluid in the pelvis. TRANSVAGINAL ULTRASOUND: The uterus measures 6.0 x 4.3 x 6.3 cm. 2.8 cm and 3.8 cm subserosal fibroids are noted. The endometr ial complex measures 4 mm in thickness. The ovaries are not visualized. IMPRESSION: 1. Normal endometrial complex. 2. Uterine fibroids. Reviewed, dictated and finalized at location A.
== END 2021-03-29 08:55 | disposition home or self-care (01) ==
LOC: ANHIMG 08:55
PROVIDERS: PCP Family Medicine; Visit Provider Obstetrics & Gynecology
DX: N95.0 Postmenopausal bleeding (principal); D25.9 Leiomyoma of uterus, unspecified
CPT/HCPCS: 76830; 76856

== ENCOUNTER 2022-04-10 00:44 | Day surgery (SDC) | payer OTHER, SELFPAY ==
[2022-03-28 13:12] VITALS: BMI 29.0
--- NOTE | 2022-03-28 13:23 | PC.NURSE ---
PT GIVEN PRE-PROCEDURE INSTRUCTIONS, INSTRUCTED NOT TO TAKE MAGNESIUM CITRATE PER BOWEL PREP ORDERS DUE TO RECALL. PT STATES UNDERSTANDING.
[2022-04-10 06:22] VITALS: BP 152/72; PULSE 70; RESP 16; TEMP 36.1; O2SAT 100; BMI 29.1
[2022-04-10] MEDS: LACTATED RINGERS 1,000 ML 150 ML IV CONT (06:35)
--- NOTE | 2022-04-10 06:42 | WPDANESEPPF ---
Anes - Initial Pre Proc Eval Procedure: Operation Date: 04/10/22 07:30 Proposed Procedures p Esophagogastroduodenoscopy & Screening Colonoscopy - Celso Rios MD Date/Time: 04/10/22 06:42 Surgeon: Celso Rios MD Pre Op Diagnosis: epigastric pain, neoplasm screening Patient Data Age: 66 Gender: F Height: 1.75 m Weight: 89.5 kg Last Vital Signs Temp 36.1 C L 04/10/22 06:22 Pulse 70 04/10/22 06:22 Resp 16 04/10/22 06:22 BP 152/72 H 04/10/22 06:22 Pulse Ox 100 04/10/22 06:22 O2 Del Method Room Air 04/10/22 06:22 Allergies Allergy/AdvReac Type Severity Reaction Status Date / Time Penicillins Allergy Mild Hives Verified 04/10/22 06:20 Home Medications Medication Instructions Recorded Confirmed Type fexofenadine 60 mg-pseudoephedrine 60 tablet PO DAILY 12/28/19 04/10/22 History ER 120 mg tablet,ext.release,12 hr (Deepika-D 12 Hour) calcium carbonate 500 mg calcium 500 mg PO DAILY 10/07/20 04/10/22 History (1,250 mg) chewable tablet (Calcium 500) cholecalciferol (vitamin D3) 125 125 mcg PO DAILY 10/07/20 04/10/22 History mcg (5,000 unit) capsule bimatoprost 0.01 % eye drops 1 drp EACH EYE QPM 12/19/20 04/10/22 History (Lumigan) cyclosporine 0.05 % eye drops in a 1 drp EACH EYE Q12H 12/19/20 04/10/22 History dropperette (Restasis) dorzolamide 2 % eye drops 1 drp EACH EYE BID 12/19/20 04/10/22 History ibuprofen 600 mg tablet 600 mg PO Q6H PRN pain #60 tabs 12/26/20 04/10/22 Rx levothyroxine 88 mcg capsule 88 mcg PO DAILY 09/13/21 04/10/22 History ospemifene 60 mg tablet (Osphena) 60 mg PO DAILY #90 tabs 11/16/21 04/10/22 Rx Patient hx anesthesia problems: none Family hx anesthesia problems: none Results Review: All pre-operative results and documents have been reviewed as part of the pre-operative evaluation. [facility] Past Medical History Medical History (Updated 04/10/22 @ 06:42 by Amandeep Wang MD) Glaucoma Hypothyroid Overweight Surgical History Surgical History History of dilation and curettage 12/26/20, with Myosure History of hysteroscopy 12/26/20 Family History Family History Father Hypertension Mother Hypertension Sibling Hypertension Social History Social History Smoking packs per day: 1 Smoking cigarettes per day: 20.0 Years smoked: 5 Smoking pack-years: 5.00 Smoking status: Former smoker Tobacco type: cigarettes Second hand tobacco smoke exposure: No Smoking end date: 08/05/89 Alcohol intake: never Substance use: never Substance use type: does not use Living arrangements: with family Gender identity (if verbalized by the patient): Female Spiritual care concerns: No Anes - Eval Final PreProcedure Day of Procedure 04/10/22 06:42 Patient weight: overweight Heart: regular rate and rhythm Lungs: clear to auscultation Airway: Mallampati scale class II Neurological: alert and oriented Last oral intake: >/= 8 hours ASA classification: II Emergent: no Anesthetic plan: proceed Anesthesia type and monitoring: general GIVS and standard monitoring Results Review: All pre-operative results and documents have been reviewed as part of the pre-operative evaluation. Informed Consent: The patient's anesthetic plan and its attendant risks and benefits were discussed with the patient/family/POA. Questions were solicited and answers provided to the satisfaction of the patient/family/POA.
--- NOTE | 2022-04-10 07:33 | PM.IMHP ---
H&P: HPI History of Present Illness Date/Time: 04/10/22 07:33 Chief Complaint: Epigastric pain and neoplasia screening. Narrative: This is a 66-year-old female patient who had a brief 1 month history of epigastric pain that lasted for what month stopped a month ago. Is poorly described. Not specifically related to diet her intake. Patient on no specific medications. EGD is requested by primary care service. Patient denies any dysphagia or weight loss. EGD will be performed to evaluate. Patient also has a past medical history of screening colonoscopy 10 years ago that was unremarkable she presents today for routine neoplasia screening colonoscopy. Patient reports her weight appetite bowel movements are normal. She denies abdominal pain she has had no bleeding. Review of Systems Review of Systems: Review of systems noncontributory. [facility] Past Medical History Medical History (Updated 04/10/22 @ 07:35 by Celso Rios MD) Glaucoma Hypothyroid Overweight Surgical History Surgical History History of dilation and curettage 12/26/20, with Myosure History of hysteroscopy 12/26/20 Family History Family History Father Hypertension Mother Hypertension Sibling Hypertension Social History Social History Smoking packs per day: 1 Smoking cigarettes per day: 20.0 Years smoked: 5 Smoking pack-years: 5.00 Smoking status: Former smoker Tobacco type: cigarettes Second hand tobacco smoke exposure: No Smoking end date: 08/05/89 Alcohol intake: never Substance use: never Substance use type: does not use Living arrangements: with family Gender identity (if verbalized by the patient): Female Spiritual care concerns: No Meds Home Medications and Allergies Home Medications Medication Instructions Recorded Confirmed Type fexofenadine 60 mg-pseudoephedrine 60 tablet PO DAILY 12/28/19 04/10/22 History ER 120 mg tablet,ext.release,12 hr (Deepika-D 12 Hour) calcium carbonate 500 mg calcium 500 mg PO DAILY 10/07/20 04/10/22 History (1,250 mg) chewable tablet (Calcium 500) cholecalciferol (vitamin D3) 125 125 mcg PO DAILY 10/07/20 04/10/22 History mcg (5,000 unit) capsule bimatoprost 0.01 % eye drops 1 drp EACH EYE QPM 12/19/20 04/10/22 History (Lumigan) cyclosporine 0.05 % eye drops in a 1 drp EACH EYE Q12H 12/19/20 04/10/22 History dropperette (Restasis) dorzolamide 2 % eye drops 1 drp EACH EYE BID 12/19/20 04/10/22 History ibuprofen 600 mg tablet 600 mg PO Q6H PRN pain #60 tabs 12/26/20 04/10/22 Rx levothyroxine 88 mcg capsule 88 mcg PO DAILY 09/13/21 04/10/22 History ospemifene 60 mg tablet (Osphena) 60 mg PO DAILY #90 tabs 11/16/21 04/10/22 Rx Allergies Allergy/AdvReac Type Severity Reaction Status Date / Time Penicillins Allergy Mild Hives Verified 04/10/22 06:20 Vital Signs Vital Signs - 24 hr 04/10/22 06:22 Temperature 97 F L Pulse Rate 70 Respiratory Rate 16 Blood Pressure 152/72 H Pulse Oximetry 100 Oxygen Delivery Room Air Exam Narrative: Physical exam reveals patient to be alert. Vital signs stable. HEENT exam is unremarkable. Patient is anicteric. Lungs are clear to auscultation and percussion. Heart is without murmur or extra sounds. Abdominal exam bowel sounds present soft nontender with no organomegaly. Digital external rectal exam is normal. Assessment and Plan Assessment and plan (1) Epigastric abdominal pain: Code(s): R10.13 - Epigastric pain Status: Acute Assessment and Plan: Patient had brief 1 month episode of vague epigastric discomfort. This is improved. Plan is for EGD to assess more thoroughly. (2) Encounter for screening colonoscopy: Code(s): Z12.11 - Encounter for screening for malignant neoplasm of colon
--- NOTE | 2022-04-10 07:44 | SUR.OPER ---
EGD: [id number] COLON: [id number]
[2022-04-10 08:00] VITALS: BP 102/68; PULSE 68; RESP 20; O2SAT 98
[2022-04-10 08:10] VITALS: BP 103/65; PULSE 66; RESP 18; O2SAT 100
[2022-04-10 08:20] VITALS: BP 112/76; PULSE 68; RESP 20; O2SAT 100
== END 2022-04-10 08:32 | disposition home or self-care (01) ==
PROVIDERS: PCP Family Medicine; Visit Provider Internal Medicine Gastroenterology
PROC: 0DJ08ZZ Inspection of Upper Intestinal Tract, Via Natural or Artificial Opening Endoscopic (ICD-10-PCS; CPT 43235; principal; 2022-04-10 07:30)
DX: Z12.11 Encounter for screening for malignant neoplasm of colon (principal); E03.9 Hypothyroidism, unspecified; Z87.891 Personal history of nicotine dependence
CPT/HCPCS: 45378; 43239; 87081; J7120

== ENCOUNTER 2022-11-06 15:37 | Outpatient (CLI) | payer OTHER, SELFPAY ==
--- NOTE | ~2022-11-06 | DEXA_ITS ---
Bone Density Report Name: BARBARA KUMAR Age: 67 Sex: Female Ethnicity: Black Date of : 1955 Indication: postmenopausal; screening for osteoporosis; height loss; Referring Provider: TASNEEM CONNER Study: Bone densitometry was performed. Exam Date: November 06, 2022 Accession number: [id number] Bone Density: Region BMD T-score Z-score Classification AP Spine(L1-L4) 0.947 -0.9 0.1 Normal Femoral Neck (Left) 0.833 -0.1 0.5 Normal Total Hip (Left) 0.985 0.4 0.7 Normal Femoral Neck (Right) 0.859 0.1 0.6 Normal Total Hip (Right) 0.939 0.0 0.4 Normal Total Hip Mean 0.962 0.2 0.6 Normal World Health Organization criteria for BMD impression classify patients as: Normal (T-score at or above -1.0), Osteopenia (T-score between -1.0 and -2.5), or Osteoporosis (T-score at or below -2.5). 10-year Fracture Risk: FRAX not reported because: All T-scores for Spine Total, Hip Total, Femoral Neck at or above -1.0 Clinical Information Provided by Patient: Has used the following medications: Vitamin D, Calcium Patient maximum height was 69 Menopause Age: 52 Drinks caffeinated beverages Onset of menses at age 16 Number of children 0 Impression: The patient has normal bone mass. Discussion: BONE DENSITY IS ABOVE THE MINIMUM DESIRABLE LEVEL AT ALL SKELETAL SITES TESTED. This patient?s bone mineral density is above the minimum desirable level (T-score -1.0 or better) at all sites measured. The patient should follow a healthful lifestyle (good nutrition with adequate calcium and vitamin D, and appropriate weight-bearing exercise). Follow-Up: Consider repeating this study in 5 years or sooner if there is some new clinical indication. Reported by: FANNY on 11/06/2022 5:17:00 PM. Reviewed, dictated and finalized at location ALuis ARCHULETA
--- NOTE | ~2022-11-06 | US_ITS ---
EXAMINATION: US pelvic complete w TV DATE: 11/06/2022 16:43 INDICATION: Postmenopausal bleeding TECHNIQUE: Multiple transabdominal and endovaginal sonographic images of the pelvis were obtained. COMPARISON: 03/29/2021 FINDINGS: The uterus measures 6.7 x 3.4 x 4.8 cm. The endometrial complex measures 3 mm. The ovaries are not visualized however no adnexal abnormality is seen. Subserosal fibroids are again noted. There is no free fluid in the pelvis. IMPRESSION: 1. No sonographic correlate for the patient's symptoms. 2. Uterine fibroids. Reviewed, dictated and finalized at location B.
== END 2022-11-06 15:38 | disposition home or self-care (01) ==
PROVIDERS: PCP Family Medicine; Visit Provider Obstetrics & Gynecology
DX: N95.0 Postmenopausal bleeding (principal); Z78.0 Asymptomatic menopausal state; D25.2 Subserosal leiomyoma of uterus
CPT/HCPCS: 76830; 76856; 77080

== ENCOUNTER 2023-11-01 16:37 | Outpatient (CLI) | payer OTHER, SELFPAY ==
--- NOTE | ~2023-11-01 | XR_ITS ---
EXAM: XR shoulder RT min 2V DATE: 11/01/2023 16:59 HISTORY: PAIN IN RT SHOULDER, NO TRAUMA . COMPARISON: None available. FINDINGS: Normal mineralization. No fracture or dislocation. No lytic or blastic lesion. Mild degene rative change at the glenohumeral and AC joint. No erosion or periosteal change. Soft tissues within normal limits. IMPRESSION: Mild polyarticular osteoarthritis. Reviewed, dictated and finalized at location K.
== END 2023-11-01 16:38 | disposition home or self-care (01) ==
LOC: ANHIMG 16:42
PROVIDERS: PCP Family Medicine
DX: M19.011 Primary osteoarthritis, right shoulder (principal)
CPT/HCPCS: 73030

== ENCOUNTER 2024-01-06 06:35 | Outpatient (CLI) | payer OTHER, SELFPAY ==
--- NOTE | ~2024-01-06 | MR_ITS ---
EXAMINATION: MR shoulder RT w con DATE: 01/06/2024 07:23 INDICATION: Right shoulder pain. TECHNIQUE: Magnetic resonance imaging (MRI) of the right shoulder was performed without intravenous c ontrast. Sequences included axial PD-weighted FS FSE, coronal oblique PD-weighted FS FSE and T2-weigh leonarda FS FSE, and sagittal oblique T2-weighted FS FSE and T1-weighted FSE. COMPARISON: Right shoulder radiographs 11/01/2023 FINDINGS: Coracoacromial arch: The acromion undersurface is curved in morphology (type II). There is mild acromioclavicular joint os teoarthritis. There is a physiologic volume of fluid in subacromial/subdeltoid bursa. Rotator cuff: There is moderate supraspinatus and infraspinatus tendinopathy. Teres minor tendon is normal. There i s mild subscapularis tendinopathy. No tear. There is no asymmetric fatty atrophy of the rotator cuff muscle bellies. Biceps tendon and glenoid labrum: Biceps tendon is in bicipital groove. Intra-articular biceps tendon is normal. There is degeneration of superior glenoid labrum without well-defined tear. Fluid: There is no glenohumeral joint effusion. Bones/cartilage: There is cartilage surface irregularity of glenoid and humeral head. IMPRESSION: 1. Moderate rotator cuff tendinopathy. No tear. 2. Mild glenohumeral joint chondrosis. 3. Mild acromioclavicular joint osteoarthritis. Reviewed, dictated and finalized at location A.
== END 2024-01-06 06:36 | disposition home or self-care (01) ==
PROVIDERS: PCP Family Medicine; Visit Provider Family Medicine
DX: M75.31 Calcific tendinitis of right shoulder (principal); M94.211 Chondromalacia, right shoulder; M19.011 Primary osteoarthritis, right shoulder
CPT/HCPCS: 73222